=== PATIENT | male | born 1970 | race Caucasian/White ===

== ENCOUNTER 2017-10-07 16:34 | Outpatient (CLI) | payer OTHER | END 2017-10-07 16:35 | disposition home or self-care (01) | LOC: BICRAD 16:34 | PROVIDERS: ATTEND Family Medicine | DX: M54.9 Dorsalgia, unspecified (principal); M47.896 Other spondylosis, lumbar region | CPT/HCPCS: 72100 ==

== ENCOUNTER 2017-11-17 11:02 | Outpatient (CLI) | payer OTHER ==
--- NOTE | 2017-11-17 13:20 | RAD ---
TWO VIEWS LEFT HIP: Indication: Bilateral hip since . Comparison: None. FINDINGS: There are small phleboliths in the left hemipelvis. Left SI joint, left hip radiographically normal. No acute fracture is evident. IMPRESSION: Radiographically normal left hip. POS: RAN
--- NOTE | 2017-11-17 13:36 | RAD ---
2 VIEWS RIGHT HIP: Date: 11/17/17 INDICATION: Right hip pain. COMPARISON: None. FINDINGS: There is a small bone island within the right ischial tuberosity. There are small phleboliths within the lower hemipelvis. The right SI joint and right hip appear radiographically normal. No acute fract ure is evident. IMPRESSION: Radiographically normal right hip. POS: RAN
== END 2017-11-17 11:03 | disposition home or self-care (01) ==
LOC: SCSRAD 11:02
PROVIDERS: ATTEND Psychiatry & Neurology Neurology
DX: M51.27 Other intervertebral disc displacement, lumbosacral region (principal)

== ENCOUNTER 2017-11-27 12:32 | Outpatient (CLI) | payer OTHER ==
--- NOTE | 2017-11-27 16:09 | MRI ---
MRI LUMBAR SPINE WITHOUT CONTRAST: 11/27/2017 HISTORY: Low back pain, radiating down the left hip. Left lower extremity radiculopathy. COMPARISON: None. TECHNIQUE: Multiplanar, multisequence MR imaging of the lumbar spine is obtained without contrast. FINDINGS: The sagittal STIR imaging demonstrates no focal area of osseous marrow edema. Lumbar vertebral body height and alignment appear within normal limits. There is a mild degree of levoscoliosis of the lum bar spine. On the basis of five lumbar type vertebral bodies, the conus medullaris terminates at the L1-L2 level . T12-L1: There is mild bilateral facet hypertrophy with no significant central canal or neural forami nal stenosis. L1-L2: There is mild bilateral facet hypertrophy. Intervertebral disk height and signal intensity a ppear within normal limits. L2-L3: Mild bilateral facet hypertrophy with no significant central canal or neural foraminal stenos is. L3-L4: There is a left foraminal disk protrusion. This causes a mild degree of left neural foramina l stenosis. There is no significant central canal or right neural foraminal stenosis. L4-L5: There is mild disk space narrowing and mild disk bulge. There is mild bilateral facet hypert rophy with no significant central canal or neural foraminal stenosis. L5-S1: Mild left foraminal disk protrusion. No significant central canal or neural foraminal stenos is. The imaged retroperitoneal structures appear grossly unremarkable. IMPRESSION: Degenerative changes, as described above, which includes a small foraminal disk protrusion on the lef t, at L3-L4, with associated mild neural foraminal stenosis. There is no severe central canal or pepper ral foraminal stenosis within the lumbar spine. POS: [email or web address]
== END 2017-11-27 12:33 | disposition home or self-care (01) ==
LOC: SCSMRI 12:32
PROVIDERS: ATTEND Psychiatry & Neurology Neurology
DX: M51.26 Other intervertebral disc displacement, lumbar region (principal); M51.27 Other intervertebral disc displacement, lumbosacral region; M47.896 Other spondylosis, lumbar region; M99.83 Other biomechanical lesions of lumbar region
CPT/HCPCS: 72148

== ENCOUNTER 2018-05-11 20:30 | Outpatient (CLI) | payer OTHER | END 2018-05-11 20:31 | disposition home or self-care (01) | LOC: SLEEPLAB 20:30 | PROVIDERS: ATTEND Family Medicine | DX: G47.33 Obstructive sleep apnea (adult) (pediatric) (principal); E66.9 Obesity, unspecified; R53.83 Other fatigue; I10 Essential (primary) hypertension; R06.83 Snoring; G47.00 Insomnia, unspecified; Z68.36 Body mass index [BMI] 36.0-36.9, adult | CPT/HCPCS: 95811 ==